=== PATIENT | male | born 1985 | race Two or more races ===

== ENCOUNTER 2016-09-01 12:30 | Emergency (ER) | payer OTHER ==
[~2016-09-01] VITALS: Wt 100.0 kg
[~2016-09-01 12:30] MED LIST: CYCL-319 PO; IBUP-1542 PO; TRAM50TA2 PO
--- NOTE | 2016-09-01 14:27 | RADRPT ---
PROCEDURE: Right shoulder series CLINICAL INDICATION: Pain. TECHNIQUE: 3 views. COMPARISON: None FINDINGS: No fractures are noted. No dislocations are noted. No significant degenerative changes are noted. The glenohumeral joint space is well maintained. No erosions are noted. The soft tissues are unremarkable. IMPRESSION: 1. No bony abnormalities are identified. RPTAT: HH .Hector Varma MD, MD Date Time Electronically viewed and signed by .Hector Varma MD, on 09/01/2016 14:27 .G/
[2016-09-01] MEDS ORDERED: NAPR-260 PO (14:36)
[2016-09-01 15:02] VITALS: BP 132/78; PULSE 74; RESP 18; TEMP 98.8
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
== END 2016-09-01 15:03 | disposition home or self-care (01) ==
LOC: FTE 12:30
DX: T14.8 Other injury of unspecified body region (principal); V18.0XXA Pedal cycle driver injured in noncollision transport accident in nontraffic accident, initial encounter
CPT/HCPCS: 73030; Z7502

== ENCOUNTER 2017-11-07 09:26 | Emergency (ER) | END 2017-11-07 13:41 | disposition home or self-care (01) ==

== ENCOUNTER 2017-11-10 19:05 | Inpatient (IN) | END 2017-11-13 14:10 | disposition home or self-care (01) | DRG 159 ==

== ENCOUNTER 2017-11-17 15:31 | Outpatient (CLI) | END 2017-11-18 14:13 | disposition home or self-care (01) ==